=== PATIENT | female | born 1960 | race Caucasian/White ===

== ENCOUNTER → 2017-01-14 | Outpatient (CLI) | payer OTHER ==
[~2017-01-14] MED LIST: B-COTAB18 PO; BACL10TA PO; CYAN10005 PO; DICY10CA55 PO; FEXO5TAB2 PO; OMEP20CA59 PO; ONDA4TAB7 SL; PROM25TA16 PO; SERT50TA PO; TRAM-453 PO; VITA1TAB4 PO
--- NOTE | 2017-01-14 07:43 | DIAGNOSTIC IMAGING REPORT ---
Right upper quadrant ultrasound BILIARY ABDOMEN LIMITED CLINICAL HISTORY: K52.9 Chronic diarrhea of unknown [id number] Abdominal pain, p pain. Nausea. TECHNIQUE: Ultrasound COMPARISON STUDY: 06/23/2012 FINDINGS: Fatty infiltration of liver. Normal caliber bile ducts. Gallbladder is normal. Pancreas and right kidney are unremarkable. IMPRESSION: Fatty infiltration of liver. Otherwise negative study Electronically signed by: John Rodriguez M.D. 01/14/2017 7:41 AM Dictated Date/Time: 01/14/2017 7:38 AM
== END | disposition home or self-care (01) ==
LOC: C.ULTRBC 06:56
PROVIDERS: ATTEND Registered Nurse
DX: K52.9 Noninfective gastroenteritis and colitis, unspecified (principal); R10.33 Periumbilical pain

== ENCOUNTER → 2017-03-05 | Day surgery (SDC) | payer OTHER ==
[2017-02-18 15:08] VITALS: Ht 170.2 cm; Wt 97.7 kg
[~2017-03-05] VITALS: Ht 170.2 cm; Wt 97.7 kg
[~2017-03-05] MED LIST changes: +ATROPINE SULFATE 0.1 MG/ML 5ML SYR IV PRN; -BACL10TA PO; -CYAN10005 PO; -DICY10CA55 PO; +EpHEDrine SULFATE INJ 50 MG/ML AMP IV PRN; -FEXO5TAB2 PO; +LIDOCAINE HCL 2% 2 ML VIAL (20MG/ML) ONE; +MIDAZOLAM HCL 1 MG/ML 2ML VIAL ONE; -OMEP20CA59 PO; -ONDA4TAB7 SL; +ONDANSETRON INJ 2 MG/ML 2 ML VIAL ONE; -PROM25TA16 PO; +PROPOFOL IV EMULSION 10 MG/ML 20 ML VIAL IV ONE; +SODIUM CHLORIDE 0.9% 500ML 500 ML IV ONE; -TRAM-453 PO
--- NOTE | 2017-03-05 11:32 | Endo History and Physical ---
History & Physical Date of Service: Mar 05, 2017. Chief Complaint: Abdominal cramping, bloating, Nausea, Diarrhea Referring Physician: Eli Ventura History of Present Illness 56 yo CF who presents for colonoscopy secondary to abdominal cramping, bloating , nausea and diarrhea. Past Surgical History Hx Cardiac Surgery: No Hx Internal Defibrillator: No Hx Pacemaker: No Hx Abdominal Surgery: Yes (PARTIAL HYSTER) Hx of Implantable Prosthesis: No Hx Post-Op Nausea and Vomiting: No Hx Cancer Surgery: No Hx Thoracic Surgery: No Hx Orthopedic: Yes (LT/RT SHOULDER SURGERY) Hx Urinary Tract Surgery: No Family History None Social History Smoking Status: Never Smoker Hx Substance Use: No Hx Alcohol Use: No Allergies Coded Allergies: Dicyclomine (Verified Allergy, Unknown, VISUAL DISTURBANCES, 02/18/17) Latex1 -Allergic Contact Dermititis (Verified Adverse Reaction, Unknown, SKIN IRRITATION, 02/18/17) Current Medications Reported Home Medications Medications Dose Route/Sig Max Daily Dose Days Date Category Vitamin E 400 Unit Tab 1 Tab PO QAM 02/18/17 Reported Vitamin B Complex (B-Complex Vitamins) 1 Tab Tab 1 Tab PO QAM 02/18/17 Reported Zoloft (Sertraline Hcl) 50 Mg Tab 50 Mg PO HS 04/18/13 Reported Vital Signs Weight (Kilograms): 97.73 Height (Feet): 5 Height (Inches): 7 Date Time Temp Pulse Resp B/P Pulse Ox O2 Delivery O2 Flow Rate FiO2 03/05/17 11:17 37.1 85 16 132/81 95 Room Air Physical Exam General Appearance: WD/WN, no apparent distress Respiratory/Chest: Auscultation: breath sounds normal Cardiovascular: Heart Auscultation: RRR Abdomen: Bowel Sounds: normal Inspection & Palpation: soft, non-distended, no tenderness, guarding & rebound Assessment and Plan Assessment: 56 yo CF who presents for colonoscopy secondary to abdominal cramping, bloating , nausea and diarrhea. Plan: Proceed with colonoscopy.
--- NOTE | 2017-03-05 12:25 | Discharge Instructions ---
Endoscopy Patient Instructions Date / Procedure(s) Performed Mar 05, 2017. Colonoscopy Allergy Information Coded Allergies: Dicyclomine (Verified Allergy, Unknown, VISUAL DISTURBANCES, 02/18/17) Latex1 -Allergic Contact Dermititis (Verified Adverse Reaction, Unknown, SKIN IRRITATION, 02/18/17) Discharge Date / Findings Mar 05, 2017. Internal hemorrhoids Random colon biopsies Stool aspirate collected Medication Instructions OK to resume all medications today as prescribed Reported Home Medications Medications Dose Route/Sig Max Daily Dose Days Date Category Vitamin E 400 Unit Tab 1 Tab PO QAM 02/18/17 Reported Vitamin B Complex (B-Complex Vitamins) 1 Tab Tab 1 Tab PO QAM 02/18/17 Reported Zoloft (Sertraline Hcl) 50 Mg Tab 50 Mg PO HS 04/18/13 Reported Provider Instructions Activity Restrictions - No exercising or heavy lifting for 24 hours. - Do not drink alcohol the day of the procedure. - Do not drive a car or operate machinery until the day after the procedure. - Do not make any important decisions or sign important papers in 24 hours after the procedure. Following Day: - Return to full activity which may include returning to work/school. Diet Start your diet with liquids and light foods (jello, soup, juice, toast). Then eat your usual diet if not nauseated. Treatment For Common After Affects For mild abdominal pain, bloating, or excessive gas: - Rest - Eat lightly - Lie on right side Follow-Up Information Follow-up with Eli Ventura as scheduled Anesthesia Information What You Should Know You have had a procedure that required some medicine to reduce anxiety and discomfort. This treatment is called moderate sedation. After receiving the treatment, you may be sleepy, but you will be able to breathe on your own. The effects of the treatment may last for several hours. Follow these instructions along with Activity/Diet recommendations noted above: * Do NOT do anything where dizziness or clumsiness would be dangerous. * Rest quietly at home today, then you can be up and about tomorrow. * Have a responsible person stay with you the rest of today. * You may have had an I.V. today. If so, you may take the dressing off later today. Recommendations Call your doctor if: * Trouble breathing * Continuous vomiting for more than 24 hours * Temperature above 101 degrees * Severe abdominal pain or bloating * Pain not relieved by pain medicine ordered * There is increased drainage or redness from any incision * A large amount of rectal bleeding greater than 2-3 tablespoons. (If you had a polyp/s removed or have hemorrhoids, a small amount of blood - from the rectum is to be expected.) * You have any unanswered questions or concerns. IN THE EVENT OF A SERIOUS EMERGENCY, GO TO THE NEAREST EMERGENCY ROOM Your discharge instructions were prepared by provider Ajith Bonner. Patient Instructions Signature Page Anne-Marie Parkinson Patient (or Guardian) Signature/Date: I have read and understand the instructions given to me by my caregivers. Caregiver/RN/Doctor Signature/Date: The above-named patient and/or guardian has received patient instructions on this date. + Original Patient Signature Page (only) stays with chart. Please make copy for patient.
--- NOTE | 2017-03-05 12:25 | GI REPORT ---
Procedure Date: 03/05/2017 11:37 AM Procedure: Colonoscopy Indications: Chronic diarrhea Medicines: Monitored Anesthesia Care Complications: No immediate complications. Estimated Blood Loss: Estimated blood loss: none. Procedure: Pre-Anesthesia Assessment: - Prior to the procedure, a History and Physical was performed, and patient medications and allergies were reviewed. The patient's tolerance of previous anesthesia was also reviewed. The risks and benefits of the procedure and the sedation options and risks were discussed with the patient. All questions were answered, and informed consent was obtained. Prior Anticoagulants: The patient has taken no previous anticoagulant or antiplatelet agents. ASA Grade Assessment: III - A patient with severe systemic disease. After reviewing the risks and benefits, the patient was deemed in satisfactory condition to undergo the procedure. After I obtained informed consent, the scope was passed under direct vision. Throughout the procedure, the patient's blood pressure, pulse, and oxygen saturations were monitored continuously. The scope was introduced through the anus and advanced to the terminal ileum. The patient tolerated the procedure well. The quality of the bowel preparation was good. The terminal ileum, ileocecal valve, appendiceal orifice, and rectum were photographed. The colonoscopy was unusually difficult due to restricted mobility of the colon. Successful completion of the procedure was aided by using manual pressure and withdrawing the scope and replacing with the pediatric colonoscope. Findings: Non-bleeding internal hemorrhoids were found during retroflexion. The hemorrhoids were small. Several random biopsies were obtained with cold forceps for histology in the entire colon. Fluid aspiration for cytology was performed in the entire colon. Impression: - Non-bleeding internal hemorrhoids. - Several random biopsies were obtained in the entire colon. - Fluid aspiration was performed. Recommendation: - Resume previous diet. - Continue present medications. - Await pathology results. - Repeat colonoscopy for surveillance based on pathology results. - Return to primary care physician as previously scheduled. Ajith Bonner DO 03/05/2017 12:23:25 PM This report has been signed electronically. Note Initiated On: 03/05/2017 11:37 AM I attest to the content of the Intraoperative Record and orders documented therein, exceptions below
--- NOTE | 2017-03-05 12:32 | Anesthesiology Progress Note ---
Anesthesia Post Op Note Date & Time Mar 05, 2017 at 12:31 Vital Signs Vital Signs Past 12 Hours Date Time Temp Pulse Resp B/P Pulse Ox O2 Delivery O2 Flow Rate FiO2 03/05/17 12:20 89 16 109/79 99 Nasal Cannula 2 03/05/17 11:17 37.1 85 16 132/81 95 Room Air Notes Mental Status: alert / awake / arousable, participated in evaluation Pt Amnestic to Procedure: Yes Nausea / Vomiting: adequately controlled Pain: adequately controlled Airway Patency, RR, SpO2: stable & adequate BP & HR: stable & adequate Hydration State: stable & adequate Anesthetic Complications: no major complications apparent
[2017-03-05 12:58] VITALS: BP 102/80; PULSE 72; O2SAT 96
== END | disposition home or self-care (01) ==
LOC: C.GI 11:00
PROVIDERS: ATTEND Internal Medicine
DX: K52.9 Noninfective gastroenteritis and colitis, unspecified (principal); K64.8 Other hemorrhoids; Z90.711 Acquired absence of uterus with remaining cervical stump; K90.0 Celiac disease; Z98.890 Other specified postprocedural states; Z91.040 Latex allergy status; Z68.34 Body mass index [BMI] 34.0-34.9, adult; E66.9 Obesity, unspecified

== ENCOUNTER → 2017-09-21 | Outpatient (CLI) | payer OTHER ==
[~2017-09-21] MED LIST changes: -ATROPINE SULFATE 0.1 MG/ML 5ML SYR IV PRN; -EpHEDrine SULFATE INJ 50 MG/ML AMP IV PRN; -LIDOCAINE HCL 2% 2 ML VIAL (20MG/ML) ONE; -MIDAZOLAM HCL 1 MG/ML 2ML VIAL ONE; -ONDANSETRON INJ 2 MG/ML 2 ML VIAL ONE; -PROPOFOL IV EMULSION 10 MG/ML 20 ML VIAL IV ONE; -SODIUM CHLORIDE 0.9% 500ML 500 ML IV ONE
== END | disposition home or self-care (01) ==
LOC: C.PAPS 14:43
PROVIDERS: ATTEND Obstetrics & Gynecology
DX: Z12.4 Encounter for screening for malignant neoplasm of cervix (principal)

== ENCOUNTER → 2017-11-30 | Outpatient (CLI) | payer OTHER ==
[~2017-11-30] MED LIST changes: -B-COTAB18 PO; -VITA1TAB4 PO
--- NOTE | 2017-12-01 15:08 | MAMMOGRAPHY REPORT ---
BILATERAL DIGITAL SCREENING MAMMOGRAM TOMOSYNTHESIS WITH CAD: 11/30/2017 CLINICAL HISTORY: Routine screening. Patient has no complaints. TECHNIQUE: Breast tomosynthesis in addition to standard 2D mammography was performed. Current study was also evaluated with a Computer Aided Detection (CAD) system. COMPARISON: No prior exams were available for comparison. BREAST COMPOSITION: There are scattered areas of fibroglandular density in both breasts. FINDINGS: No suspicious masses, asymmetries, architectural distortion or suspicious microcalcificati ons are identified. IMPRESSION: ACR BI-RADS CATEGORY 1: NEGATIVE There is no mammographic evidence of malignancy. Prior outside mammograms are currently being reques silvia and if obtained they will be reviewed, compared to the current exam to assess for any more subtle changes, and an addendum will be made to this report. Otherwise, a 1 year screening mammogram is re commended. The patient will receive written notification of the results. Approximately 10% of breast cancers are not detected with mammography. A negative mammographic report should not delay biopsy if a clinically suggestive mass is present. Nisa Harding M.D. ay/:11/30/2017 16:48:07 [facility] Consultant: Deanna MCKEON)([place]), [facility] letter sent: Normal 1/2 BI-RADS Code: ACR BI-RADS Category 1: Negative
== END | disposition home or self-care (01) ==
LOC: C.MAMM 06:58
PROVIDERS: ATTEND Obstetrics & Gynecology
DX: Z12.31 Encounter for screening mammogram for malignant neoplasm of breast (principal)

== ENCOUNTER → 2017-12-16 | Outpatient (CLI) | payer OTHER ==
--- NOTE | 2017-12-16 16:22 | DIAGNOSTIC IMAGING REPORT ---
CT OF THE HEAD WITHOUT CONTRAST CLINICAL HISTORY: Chronic migraines. COMPARISON STUDY: No previous studies for comparison. CT DOSE: 537.48 mGy.cm TECHNIQUE: Helical axial images of the head were obtained without IV contrast. Automated exposure control was utilized for the study. A dose lowering technique was utilized adhering to the principles of ALARA. FINDINGS: No acute intracranial hemorrhage, midline shift or mass effect is present. There is fullness at the level of the foramen magnum. Ventricular system is normal. There are no extra-axial collections. Pham-white differentiation is maintained. There are no findings to suggest acute dural sinus thrombosis or acute territorial infarct. There are no significant calvarial abnormalities. Visualized portions of the sinuses and mastoid air cells are clear. IMPRESSION: 1. No acute intracranial findings. 2. Fullness at the level of the foramen magnum which may represent cerebellar tonsillar ectopia which is suboptimally assessed by CT. An MRI of the cervical spine could be obtained if clinical suspicion for a Chiari malformation. Electronically signed by: Chase Valdivia M.D. 12/16/2017 4:20 PM Dictated Date/Time: 12/16/2017 4:18 PM
== END | disposition home or self-care (01) ==
LOC: C.CTS 15:47
PROVIDERS: ATTEND Family Medicine
DX: G43.709 Chronic migraine without aura, not intractable, without status migrainosus (principal)

== ENCOUNTER → 2018-01-21 | Outpatient (CLI) | payer OTHER ==
[~2018-01-21] MED LIST changes: +GADAVIST IV PRN
--- NOTE | 2018-01-21 16:35 | DIAGNOSTIC IMAGING REPORT ---
BRAIN COMBO HISTORY: 57 years-old Female CEREBELLAR TONSILLAR ECTOPIA, HEADACHE chronic headaches with dizziness. Questioned Chiari malformation on comparison CT head COMPARISON: Head CT 12/16/2017 TECHNIQUE: Multiplanar multisequence MRI of the brain was obtained both with and without the use of 9.5 mL Gadavist FINDINGS: The large wasna-db-cqhy getterer localizer images demonstrate no gross abnormality. There is no restricted diffusion to suggest acute or subacute infarction. The cerebellar tonsils extend 6 mm below the level the foramen magnum compatible with Chiari I malformation. No syrinx of the imaged cervical spinal cord identified. No posterior fossa mass is seen. The corpus callosum, optic chiasm, pituitary and pineal glands are unremarkable in the sagittal T1 images. Mild degenerative changes of the imaged cervical spine. There is no acute intracranial hemorrhage, midline shift, abnormal extra-axial collections or hydrocephalus. There are a few punctate foci of increased T2/FLAIR signal within the subcortical white matter, notably within the left frontal lobe, image 9 series 7 which are likely of no clinical significance. There is no abnormal intra-axial or extra-axial enhancement identified. The major flow voids at the level of the skull base appear to be patent. Orbits are symmetric. Mastoid air cells and paranasal sinuses are generally clear. Scalp, calvarium and soft tissues are within normal limits. IMPRESSION: 1. No acute intracranial abnormality identified. No evidence of acute infarction or abnormal enhancement. 2. Chiari I malformation. No syrinx of the imaged cervical spinal cord identified. The above report was generated using voice recognition software. It may contain grammatical, syntax or spelling errors. Electronically signed by: Clint Jurado M.D. 01/21/2018 4:33 PM Dictated Date/Time: 01/21/2018 4:27 PM
== END | disposition home or self-care (01) ==
LOC: C.MRI 15:49
PROVIDERS: ATTEND Psychiatry & Neurology Neurology
DX: Q04.8 Other specified congenital malformations of brain (principal); R51 Headache; G93.5 Compression of brain

== ENCOUNTER → 2018-03-28 | Outpatient (CLI) | payer OTHER ==
[~2018-03-28] MED LIST changes: -GADAVIST IV PRN
== END | disposition home or self-care (01) ==
LOC: C.LAB 16:02
PROVIDERS: ATTEND Obstetrics & Gynecology
DX: R10.2 Pelvic and perineal pain (principal)

== ENCOUNTER → 2018-03-28 | Outpatient (CLI) | payer OTHER ==
[~2018-03-28] MED LIST changes: +GADAVIST IV PRN
--- NOTE | 2018-03-28 18:22 | DIAGNOSTIC IMAGING REPORT ---
CERVICAL SPINE COMBO CLINICAL HISTORY: 57 years-old Female presenting with CHIARI MALFORMATION, NUMBNESS, TINGLING. TECHNIQUE: Multisequence, multiplanar MR imaging of the cervical spine was performed before and after the administration of intravenous contrast. IV contrast: 9 mL of Gadavist. COMPARISON: None. FINDINGS: Localizer images: Unremarkable. Normal cervical lordosis. Vertebral bodies maintain normal height, alignment, and bone marrow signal intensity. Mild diffuse disc desiccation. Mild height loss focally at C5-6. Additional degenerative changes further detailed below: C2-3: No significant neural foraminal or spinal canal narrowing. C3-4: Uncovertebral hypertrophy on the right results in mild right neural foraminal narrowing. No spinal canal narrowing. C4-5: Small disc osteophyte complex/uncovertebral hypertrophy does not significantly efface the thecal sac. However, mild right neural foraminal narrowing evident. C5-6: Disc osteophyte complex with significant posterior bony spurring results in effacement of the ventral thecal sac and contouring of the spinal cord most prominently along the left paracentral anterior aspect. Uncovertebral hypertrophy also results in mild right and moderate left neural foraminal narrowing. C6-7: No significant neural foraminal or spinal canal narrowing. C7-T1: No significant neural foraminal or spinal canal narrowing. No dural collection. No abnormal enhancement on postcontrast imaging. The spinal cord demonstrates a small series (series 4 image 9). Cerebellar tonsils are low-lying, 7 mm below the foramen magnum. No paraspinal muscular edema. Remaining soft tissues within normal limits. IMPRESSION: 1. Findings consistent with Chiari 1 malformation with a small syrinx. 2. Multilevel degenerative changes most significant at C5-6, where there is contouring of the spinal cord primarily along the left or central anterior aspect. Neural foraminal narrowing from C3-4 through C5-6 most significant on the left at C5-6. Electronically signed by: Loyd Colby M.D. 03/28/2018 6:21 PM Dictated Date/Time: 03/28/2018 6:13 PM
== END | disposition home or self-care (01) ==
LOC: C.MRI 16:00
PROVIDERS: ATTEND Psychiatry & Neurology Neurology
DX: G95.0 Syringomyelia and syringobulbia (principal); R20.0 Anesthesia of skin; R20.2 Paresthesia of skin

== ENCOUNTER 2019-11-09 20:29 | Inpatient (IN) ==
[2019-11-09] MEDS ORDERED: ONDANSETRON INJ 2 MG/ML 2 ML VIAL IV STA (21:09)
[2019-11-09] MEDS ORDERED: POTASSIUM CHLORIDE 20 MEQ/15 ML UDC PO STA (21:09)
[2019-11-09] MEDS ORDERED: SODIUM CHLORIDE 0.9% 1000ML 2,000 ML IV SCH (21:15)
[2019-11-09] MEDS: POTASSIUM CHLORIDE / WTR 10 MEQ/100 ML PLCT IV SCH ×2 (21:27→22:33)
[2019-11-09 21:28] LABS: Basophils # (auto) 0.01 K/uL (0-0.2); Basophils % (auto) 0.1 %; Eosinophils # (auto) 0.06 K/uL (0-0.5); Eosinophils % (auto) 0.8 %; Hematocrit (blood only) 40.4 % (37-47); Hemoglobin 14.3 g/dL (12.0-16.0); Lymphocytes # (auto) 2.64 K/uL (1.2-3.4); Lymphocytes % (auto) 37.2 %; Mean Corpuscular Hemoglobin 30.2 pg (25-34); Mean Corpuscular Hgb Conc 35.4 g/dL (32-36); Mean Corpuscular Volume 85.4 fL (80-100); Monocytes # (auto) 0.75 K/uL (0.11-0.59); Monocytes % (auto) 10.6 %; Neutrophils # (auto) 3.64 K/uL (1.4-6.5); Neutrophils % (auto) 51.3 %; Platelet Count 274 K/uL (130-400); RDW Coefficient of Variation 14.3 % (11.5-14.5); RDW Standard Deviation 44.2 fL (36.4-46.3); Red Blood Count 4.73 M/uL (4.2-5.4)
[2019-11-09 21:47] LABS: Albumin Level 3.5 gm/dl (3.4-5.0); BUN Creatinine Ratio 14.3 (10-20); Calcium 8.4 mg/dl (8.5-10.1); Creatinine Clr Calc Pharmacy 74.5 ml/min; Est GFR (African American) 76.5; Potassium 2.2 mmol/L (3.5-5.1)
[2019-11-09 22:03] LABS: Bilirubin,Total 0.3 mg/dl (0.2-1); Globulin 3.6 gm/dl (2.5-4.0); Total Protein 7.1 gm/dl (6.4-8.2)
--- NOTE | 2019-11-09 23:42 | History & Physical Report ---
Date of Service November 09, 2019 Assessment & Plan (1) Acute hypokalemia: Outpatient laboratories performed prior to arrival, showed a potassium level of 2.5. In hospital laboratories upon admission showed a potassium 2.2, with normal magnesium level of 2.2. Patient will have potassium replaced both orally and IV, and will have serial laboratory testing for follow-up. Present on Admission?: Yes (2) Celiac disease: Patient will be placed on standard gluten-free diet. She reports that the symptoms began after eating cheddar biscuits at [facility]. Present on Admission?: Yes (3) Lymphocytic colitis: Lymphocytic colitis, as diagnosed on recent EGD by Dr. Bonner. She has taken 1 dose of budesonide orally at this time. While in hospital will place on IV Solu-Medrol, and she will resume budesonide upon discharge. Likely cause of her increased volume of diarrhea and secondary hypokalemia. Consult GI Dr. Bonner Present on Admission?: Yes (4) Migraine: Continue topiramate and sertraline. Present on Admission?: Yes (5) Anxiety: Continue topiramate and sertraline Present on Admission?: Yes History of Present Illness After a failed course of treatment of Xifaxan Chief Complaint: The patient presents to the emergency department after being referred from the outpatient setting due to abnormal laboratories drawn earlier in the day, in particular low potassium. Primary Care Provider: Eli Ventura MD The patient is a 59-year-old female with a past medical history including celiac disease, lymphocytic colitis, Chiari malformation, migraine, chronic diarrhea and depression, who reports that around she had eaten 2 biscuits at a local eatery, and shortly thereafter developed persistent diarrhea, unchanged since that time. Laboratories were drawn in the outpatient setting today, and a very low potassium was found, and she was referred to the emergency department for treatment. Patient does have a history of intermittent diarrhea, associated with her celiac disease, however, since the symptoms were significantly worse, she did undergo an EGD recently by Dr. Bonner, after a failed course of treatment of Xifaxan, and was found to have lymphocytic colitis, for which she was recently prescribed and just started budesonide orally. Allergies Allergy/AdvReac Type Severity Reaction Status Date / Time dicyclomine Allergy Mild VISUAL Verified 11/09/19 22:10 DISTURBANCES latex AdvReac Mild SKIN Verified 11/09/19 22:10 IRRITATION Home Medications Home Medications Medication Instructions Recorded Confirmed Type sertraline 50 mg tablet 50 mg PO HS 09/04/19 11/09/19 History topiramate 100 mg tablet 100 mg PO BID 09/04/19 11/09/19 History montelukast [Singulair] 10 mg PO QAM 10/30/19 11/09/19 History rizatriptan 10 mg PO UD PRN 10/30/19 11/09/19 History vitamin B complex 1 tab PO QAM 10/30/19 11/09/19 History budesonide 9 mg tablet,delayed and 9 mg PO DAILY #30 ea 11/09/19 11/09/19 Rx extended release Past Med/Surg History Medical History Anxiety Celiac disease blood work positive, pt denies any EGD---follows GF diet Chronic diarrhea Giardiasis IBS (irritable bowel syndrome) Migraine Spinal stenosis Surgical History H/O colonoscopy History of arthroscopy of left shoulder labial tear History of arthroscopy of right shoulder labial tear History of photorefractive keratectomy (PRK) right eye History of vaginal hysterectomy Family History Mother Family history of diabetes mellitus Other No family history of adverse response to anesthesia Social History Preferred Language: Armenian Communication Ability: Effective Visual Impairment: No Limitations Hearing Ability: Normal Security Installation Sales Technician Required: No Beliefs That Will Affect Care: None marital status: Current Living Situation: Alone current occupational status: employed current occupation: Registered Nurse Other Information That Helps Us Care for You: No Feels Safe at Home: Yes Safety Concerns: Feels Safe At This Time Smoking Status: Never smoker Do You Dip or Chew Tobacco: No ; Second Hand Exposure: No ; Hx Alcohol Use: No Hx Substance Use: No Childhood Exposure to Second-Hand Smoke: Yes caffeine: No during the past year weight has: remained stable Dental Care, Regularly: Yes Physical Activity Frequency: Daily Seatbelt Use: always Sunscreen Use: Yes Review of Systems Review of Systems: The patient denies chest pain, palpitations, shortness of breath, dyspnea on exertion, cough, lower extremity swelling, sore throat, fevers, chills, sweats, blood in urine or stool, dysuria, urinary frequency or urgency, lightheadedness, dizziness, headache, memory loss, loss of consciousness, rash, abnormal bruising or bleeding, imbalance, focal or generalized weakness, numbness or tingling in arms or legs, generalized arthralgias or myalgias, back or neck pain, or night sweats. The review of systems is otherwise negative other than for that already noted above, and at least 10 systems have been reviewed. Physical Exam Physical Exam: The patient is awake, alert and oriented 3, well developed and well nourished, normocephalic and atraumatic, lying in bed and in no acute distress. HEENT--PERRL, EOMI, mucous membranes and oropharynx dry. Neck--supple. No JVD. No bruits. Thyroid normal, trachea midline, no adenopathy. Heart--normal S1 and S2. No murmurs, rubs or gallops. Lungs--clear bilaterally, no respiratory distress, no accessory muscle use. Abdomen--normal bowel sounds and soft. Nontender. Nondistended. Extremities--no cyanosis or clubbing. No edema. Dermatologic--normal skin turgor, normal color, no abnormal lymph nodes, no rash. Neurologic--cranial nerves II through XII grossly intact. Rheumatologic--normal range of motion. Psychiatric--normal affect. Results & Data Vital Signs (Past 12 Hours) Vital Signs Temp Pulse Pulse Resp BP BP Pulse Ox 11/09/19 22:30 75 16 123/80 99 11/09/19 20:31 97.7 F 82 18 138/85 96 Laboratory Results Laboratory Results WBC 7.10 K/uL (4.8-10.8) 11/09/19 21: RBC 4.73 M/uL (4.2-5.4) 11/09/19 21: Hgb 14.3 g/dL (12.0-16.0) 11/09/19 21:19 Hct 40.4 % (37-47) 11/09/19 21: MCV 85.4 fL (80-100) 11/09/19 21: MCH 30.2 pg (25-34) 11/09/19 21:19 MCHC 35.4 g/dL (32-36) 11/09/19 21: RDW Std Deviation 44.2 fL (36.4-46.3) 11/09/19 21: RDW Coeff of Dave 14.3 % (11.5-14.5) 11/09/19 21:19 Plt Count 274 K/uL (130-400) 11/09/19 21: MPV 10.0 fL (7.4-10.4) 11/09/19 21:19 Immature Gran % (Auto) 0.0 % 11/09/19 21: Neut % (Auto) 51.3 % 11/09/19 21: Lymph % (Auto) 37.2 % 11/09/19 21: Scott % (Auto) 10.6 % 11/09/19 21: Eos % (Auto) 0.8 % 11/09/19 21: Baso % (Auto) 0.1 % 11/09/19 21: Immature Gran # (Auto) 0.00 K/uL (0.00-0.02) 11/09/19 21: Neut # (Auto) 3.64 K/uL (1.4-6.5) 11/09/19 21: Lymph # (Auto) 2.64 K/uL (1.2-3.4) 11/09/19 21:19 Scott # (Auto) 0.75 K/uL (0.11-0.59) H 11/09/19 21: Eos # (Auto) 0.06 K/uL (0-0.5) 11/09/19 21: Baso # (Auto) 0.01 K/uL (0-0.2) 11/09/19 21:19 Sodium 141 mmol/L (136-145) 11/09/19 21:19 Potassium 2.2 mmol/L (3.5-5.1) L* 11/09/19 21:19 Chloride 110 mmol/L (98-107) H 11/09/19 21:19 Carbon Dioxide 27 mmol/L (21-32) 11/09/19 21:19 Anion Gap 4.0 (3-11) 11/09/19 21:19 BUN 14 mg/dl (7-18) 11/09/19 21:19 Creatinine 0.95 mg/dl (0.6-1.2) D 11/09/19 21:19 Est Cr Clr Drug Dosing 74.5 ml/min 11/09/19 21:19 Est GFR ( Amer) 76.5 11/09/19 21:19 Est GFR (Non-Af Amer) 66.0 11/09/19 21:19 BUN/Creatinine Ratio 14.3 (10-20) 11/09/19 21:19 Glucose 133 mg/dl (70-99) H 11/09/19 21:19 Calcium 8.4 mg/dl (8.5-10.1) L 11/09/19 21:19 Magnesium 2.2 mg/dl (1.8-2.4) 11/09/19 21:19 Total Bilirubin 0.3 mg/dl (0.2-1) 11/09/19 21:19 AST 19 U/L (15-37) 11/09/19 21:19 ALT 28 U/L (12-78) 11/09/19 21:19 Alkaline Phosphatase 78 U/L (45-117) 11/09/19 21:19 Total Protein 7.1 gm/dl (6.4-8.2) 11/09/19 21:19 Albumin 3.5 gm/dl (3.4-5.0) 11/09/19 21:19 Globulin 3.6 gm/dl (2.5-4.0) 11/09/19 21:19 Albumin/Globulin Ratio 1.0 (0.9-2) 11/09/19 21:19 Lipase 270 U/L (73-393) 11/09/19 21:19 Code Status & VTE Plan Code Status Full code VTE Prophylaxis Plan VTE Prophylaxis will be ordered: Yes PG Care Time/CCT Total # of Minutes Spent Total Time Spent with Patient: Total time spent is greater than 50% in coordination of care (as documented) at patient's floor/unit and/or counseling patient:
[2019-11-09 23:50] LABS: Magnesium 2.2 mg/dl (1.8-2.4)
--- NOTE | 2019-11-10 00:14 | Emergency Department Note ---
Entered by Dipesh Quiroz acting as a scribe for Barbra Willis MD History of Present Illness General Chief complaint: Abnormal Labs/Diagnostic Testing Stated complaint: REF FOR LAB WORK Source: patient History of Present Illness Onset (ago): day(s) 6 Severity: moderate Pain Consistency: + constant Quality: + other (weakness and tired) Associated symptoms: + denies other symptoms (blood in her diarrhea) and + other (diarrhea, potassium of 2.5, palpitations) The patient is a 59 y/o female who presents to the ED w/ CC of constant, moderat e, weakness and feeling tired beginning six days ago. The patient states she has a history of celiac disease and has been having diarrhea for over a month. She reports she believes it started from having two cheddar biscuits at [facility]. The patient notes she was evaluated by Dr. Bonner and placed on Xifaxan without improvement. She states she then had a colonoscopy eight days ago, and she was diagnosed with lymphatic colitis. The patient reports she had a follow-up appointment today to discuss treatment options. She notes she had lab work completed because she has been feeling tired and weak and also because she had palpitations today. The patient states she was told to come to the ED because her potassium was 2.5. She reports she is not having blood in her diarrhea. Home Medications Home Medications Medication Instructions Recorded Confirmed Type sertraline 50 mg tablet 50 mg PO HS 09/04/19 11/09/19 History topiramate 100 mg tablet 100 mg PO BID 09/04/19 11/09/19 History montelukast [Singulair] 10 mg PO QAM 10/30/19 11/09/19 History rizatriptan 10 mg PO UD PRN 10/30/19 11/09/19 History vitamin B complex 1 tab PO QAM 10/30/19 11/09/19 History budesonide 9 mg tablet,delayed and 9 mg PO DAILY #30 ea 11/09/19 11/09/19 Rx extended release potassium chloride 30 meq PO BID #60 tab 11/11/19 Rx potassium, sodium phosphates 1 pkt PO BID #100 ea 11/11/19 Rx [Phosphorous Supplement] Allergies Allergy/AdvReac Type Severity Reaction Status Date / Time dicyclomine Allergy Mild VISUAL Verified 11/09/19 22:10 DISTURBANCES latex AdvReac Mild SKIN Verified 11/09/19 22:10 IRRITATION Past Med/Surg History Medical History Anxiety Celiac disease blood work positive, pt denies any EGD---follows GF diet Chronic diarrhea Giardiasis IBS (irritable bowel syndrome) Migraine Spinal stenosis Surgical History H/O colonoscopy History of arthroscopy of left shoulder labial tear History of arthroscopy of right shoulder labial tear History of photorefractive keratectomy (PRK) right eye History of vaginal hysterectomy Family History Mother Family history of diabetes mellitus Other No family history of adverse response to anesthesia Social History Preferred Language: Danish Communication Ability: Effective Visual Impairment: No Limitations Hearing Ability: Normal Manager Business Continuity Required: No Beliefs That Will Affect Care: None marital status: Current Living Situation: Alone current occupational status: employed current occupation: Registered Nurse Feels Safe at Home: Yes Smoking Status: Never smoker Second Hand Exposure: No ; Hx Alcohol Use: No Hx Substance Use: No Childhood Exposure to Second-Hand Smoke: Yes caffeine: No during the past year weight has: remained stable Dental Care, Regularly: Yes Physical Activity Frequency: Daily Seatbelt Use: always Sunscreen Use: Yes Review of Systems See HPI for pertinent positives & negatives. and A total of 10 systems reviewed and were otherwise negative Physical Exam Vital Signs Vital Signs - 24 hr 11/09/19 20:31 11/09/19 22:30 Temperature 36.5 C Temperature Source Oral Pulse Rate 82 Pulse Rate [Apical] 75 Pulse Rhythm [Apical] Regular Pulse Strength [Apical] Normal Respiratory Rate 18 16 Respiratory Effort / Characteristics Non-Labored Spontaneous Non-Labored Spontaneous Respiratory Depth Normal Normal Respiratory Pattern Regular Regular Blood Pressure 138/85 Blood Pressure [Left Arm] 123/80 Blood Pressure Mean 102 Blood Pressure Mean [Left Arm] 94 Blood Pressure Position Sitting Blood Pressure Position [Left Arm] Lying Pulse Oximetry 96 99 Oxygen Delivery Method Room Air Room Air Sepsis Recent Fever Within 48 Hours No Sepsis Action Taken by Nursing No Action Required Vital signs reviewed. General: Dry-appearing 59 year old female, in no significant distress. HEENT: No scleral icterus, PERRLA, neck supple. Atraumatic. Dry mucous membranes. Cardiovascular: Regular rate and rhythm, no extra sounds. Pulmonary: Clear to auscultation bilaterally, normal work of breathing. Abdomen: Soft, nontender, nondistended, positive bowel sounds. Musculoskeletal: Atraumatic, no peripheral edema. Neurologic: Patient awake alert and oriented x 3. Skin: Warm, dry, no rash Course Course 2106: Past medical records reviewed. The patient was evaluated in room C01B. A complete history and physical examination was performed. 2213: Upon reevaluation, the patient is resting comfortably. I discussed laboratory and radiographic results with her. She verbalized agreement of the treatment plan. The patient will be evaluated for further management and care. 224: I reviewed the patient's case with Dr. Crawford, [facility] Hospitalist. He will evaluate the patient for further management. Administered Medications Discontinued Medications Budesonide (Entocort Ec) 9 mg PO QAM JOSÉ Stop: 12/10/19 14:59 Last Admin: 11/11/19 08:14 Dose: 9 mg Documented by: [id number] Admin: 11/10/19 15:23 Dose: 9 mg Documented by: [id number] Cholestyramine Resin (Questran) 2 gm PO ONE ONE Stop: 11/10/19 01:09 Last Admin: 11/10/19 02:16 Dose: 2 gm Documented by: [id number] Sodium Chloride (Nss 1000ml) 2,000 mls @ 999 mls/hr IV .Q2H1M JOSÉ Stop: 11/09/19 23:15 Last Infusion: 11/09/19 23:44 Dose: 0 mls/hr Documented by: [id number] Admin: 11/09/19 21:27 Dose: 999 mls/hr Documented by: [id number] Potassium Chloride (K Jono / Wtr) 10 meq in 100 mls @ 100 mls/hr IV Q1H JOSÉ Stop: 11/09/19 23:14 Last Infusion: 11/09/19 23:44 Dose: 0 mls/hr Documented by: [id number] Admin: 11/09/19 22:33 Dose: 100 mls/hr Documented by: [id number] Infusion: 11/09/19 22:27 Dose: 0 mls/hr Documented by: [id number] Admin: 11/09/19 21:27 Dose: 100 mls/hr Documented by: [id number] Methylprednisolone 40 mg/ (Syringe) 0.64 mls @ 1.5 mls/min IV Q8H JOSÉ Stop: 12/10/19 01:59 Last Admin: 11/10/19 11:15 Dose: 1.5 mls/min Documented by: [id number] Admin: 11/10/19 02:19 Dose: 1.5 mls/min Documented by: [id number] Potassium Chloride/Sodium Chloride (Normal Saline W/20 Meq Kcl) 20 meq in 1,000 mls @ 150 mls/hr IV .Q6H40M JOSÉ Stop: 12/10/19 01:07 Last Infusion: 11/10/19 15:34 Dose: 0 mls/hr Documented by: [id number] Admin: 11/10/19 09:12 Dose: 150 mls/hr Documented by: [id number] Infusion: 11/10/19 09:00 Dose: 150 mls/hr Documented by: [id number] Admin: 11/10/19 02:19 Dose: 150 mls/hr Documented by: [id number] Calcium Gluconate 2,000 mg/ (Sodium Chloride) 70 mls @ 280 mls/hr IV ONE ONE Stop: 11/10/19 15:14 Last Infusion: 11/10/19 15:51 Dose: 0 mls/hr Documented by: [id number] Admin: 11/10/19 15:23 Dose: 280 mls/hr Documented by: [id number] Potassium Phosphate 21 mmol/ (Sodium Chloride) 507 mls @ 144 mls/hr IV ONE ONE Stop: 11/11/19 12:16 Last Infusion: 11/11/19 12:41 Dose: 0 mls/hr Documented by: [id number] Admin: 11/11/19 09:06 Dose: 144 mls/hr Documented by: [id number] Montelukast Sodium (Singulair) 10 mg PO QAM [facility] Stop: 12/10/19 08:59 Last Admin: 11/11/19 08:13 Dose: 10 mg Documented by: [id number] Admin: 11/10/19 09:13 Dose: 10 mg Documented by: [id number] Ondansetron HCl (Zofran) 4 mg IV NOW STA Stop: 11/09/19 21:10 Last Admin: 11/09/19 21:27 Dose: 4 mg Documented by: [id number] Potassium Chloride (Eula Ciel Elix) 40 meq PO NOW STA Stop: 11/09/19 21:10 Last Admin: 11/09/19 21:28 Dose: 40 meq Documented by: [id number] Potassium Chloride (Klor-Con M20) 20 meq PO Q2H JOSÉ Stop: 11/10/19 13:01 Last Admin: 11/10/19 13:13 Dose: 20 meq Documented by: [id number] Admin: 11/10/19 11:18 Dose: 20 meq Documented by: [id number] Admin: 11/10/19 09:13 Dose: 20 meq Documented by: [id number] Admin: 11/10/19 06:28 Dose: 20 meq Documented by: [id number] Admin: 11/10/19 04:50 Dose: 20 meq Documented by: [id number] Admin: 11/10/19 02:19 Dose: 20 meq Documented by: [id number] Potassium Chloride (Klor-Con Pwd) 20 meq PO BID JOSÉ Stop: 11/11/19 09:01 Last Admin: 11/10/19 19:09 Dose: Not Given Documented by: [id number] Potassium Chloride (Klor-Con M20) 20 meq PO BID JOSÉ Stop: 11/11/19 09:01 Last Admin: 11/11/19 08:13 Dose: 20 meq Documented by: [id number] Admin: 11/10/19 20:46 Dose: 20 meq Documented by: [id number] Admin: 11/10/19 16:54 Dose: 20 meq Documented by: [id number] Rizatriptan Benzoate (Maxalt) 10 mg PO UD PRN PRN Reason: migraine headache Stop: 12/10/19 01:07 Last Admin: 11/10/19 20:45 Dose: 10 mg Documented by: [id number] Sertraline HCl (Zoloft) 50 mg PO HS JOSÉ Stop: 12/10/19 20:59 Last Admin: 11/10/19 20:46 Dose: 50 mg Documented by: [id number] Topiramate (Topamax) 100 mg PO BID JOSÉ Stop: 12/10/19 01:07 Last Admin: 11/11/19 08:13 Dose: 100 mg Documented by: [id number] Admin: 11/10/19 20:46 Dose: 100 mg Documented by: [id number] Admin: 11/10/19 09:14 Dose: 100 mg Documented by: [id number] Admin: 11/10/19 02:18 Dose: 100 mg Documented by: [id number] Vitamin B Complex (Vitamin B Complex) 1 tab PO ANN JOSÉ Stop: 12/10/19 08:59 Last Admin: 11/11/19 08:14 Dose: 1 tab Documented by: [id number] Admin: 11/10/19 09:14 Dose: 1 tab Documented by: [id number] Medical Decision Making Differential Diagnosis Differential: Viral, Bacterial, Parasitic, Iatrogenic, C-Diff, Malabsorbtion, Irritable Bowel Disease, IBS, Ischemic Bowel, amongst other pathologies ent ertained. Medical Records Attestation: I reviewed the patient's medical records. Home Medications Current Medication List: was personally reviewed by me Laboratory Data Attestation: I reviewed the patient's lab results. Result diagrams: 11/10/19 07:09 11/11/19 05:49 Lab Results 11/09/19 11/09/19 Range/Units 21:19 21:19 WBC 7.10 (4.8-10.8) K/uL RBC 4.73 (4.2-5.4) M/uL Hgb 14.3 (12.0-16.0) g/dL Hct 40.4 (37-47) % MCV 85.4 (80-100) fL MCH 30.2 (25-34) pg MCHC 35.4 (32-36) g/dL RDW Std Deviation 44.2 (36.4-46.3) fL RDW Coeff of Dave 14.3 (11.5-14.5) % Plt Count 274 (130-400) K/uL MPV 10.0 (7.4-10.4) fL Immature Gran % (Auto) 0.0 % Neut % (Auto) 51.3 % Lymph % (Auto) 37.2 % [place] % (Auto) 10.6 % Eos % (Auto) 0.8 % Baso % (Auto) 0.1 % Immature Gran # (Auto) 0.00 (0.00-0.02) K/uL Neut # (Auto) 3.64 (1.4-6.5) K/uL Lymph # (Auto) 2.64 (1.2-3.4) K/uL [place] # (Auto) 0.75 H (0.11-0.59) K/uL Eos # (Auto) 0.06 (0-0.5) K/uL Baso # (Auto) 0.01 (0-0.2) K/uL Sodium 141 (136-145) mmol/L Potassium 2.2 L* (3.5-5.1) mmol/L Chloride 110 H (98-107) mmol/L Carbon Dioxide 27 (21-32) mmol/L Anion Gap 4.0 (3-11) BUN 14 (7-18) mg/dl Creatinine 0.95 D (0.6-1.2) mg/dl Est Cr Clr Drug Dosing 74.5 ml/min Est GFR ( Amer) 76.5 Est GFR (Non-Af Amer) 66.0 BUN/Creatinine Ratio 14.3 (10-20) Glucose 133 H (70-99) mg/dl Calcium 8.4 L (8.5-10.1) mg/dl Magnesium 2.2 (1.8-2.4) mg/dl Total Bilirubin 0.3 (0.2-1) mg/dl AST 19 (15-37) U/L ALT 28 (12-78) U/L Alkaline Phosphatase 78 (45-117) U/L Total Protein 7.1 (6.4-8.2) gm/dl Albumin 3.5 (3.4-5.0) gm/dl Globulin 3.6 (2.5-4.0) gm/dl Albumin/Globulin Ratio 1.0 (0.9-2) Lipase 270 (73-393) U/L ECG Data Attestation: I personally reviewed and interpreted this ECG as follows: Indication: + weakness Rate (beats per minute): 74 Rhythm: + normal sinus ECG ST segments: + Nonspecific ST abnormalities (diffusely) ECG Findings: + Other (Prolonged QTc of 463); no PACs and no PVCs Blood Pressure Blood Pressure Findings: Elevated blood pressure Blood Pressure Disposition: further management by hospitalist NYLA Lucio This patient was evaluated and appeared to be in no significant distress. IV access was obtained and laboratory work was drawn. Patient was started on IV hydration and placed on the hall monitor. Patient's potassium was noted to be 2.2. Patient was given 40 mEq of potassium orally in addition to 20 mEq of KCl IV. EKG reveals some changes consistent with hyperkalemia. Patient was discussed with the hospitalist service for potassium replacement and further hydration. Patient is aware of the plan and agrees. Impression & Plan Acute hypokalemia, Diarrhea, Acute dehydration Discharge Plan Visit Data *Final* Discharge Date/Time: 11/10/19 00:38 Chief Complaint: Abnormal Labs/Diagnostic Testing Stated Complaint: DR BARON FOR LAB WORK ED Provider: Barbra Willis Discharge Problem: Acute hypokalemia, Diarrhea, Acute dehydration Patient Disposition: Admitted As Inpatient Discharge Instructions Interventions: ED Discharge Assessment Last Done: 11/10/19 00:38 Discharge Problem: Diarrhea Qualifiers: Diarrhea type: unspecified type Qualified Code(s): R19.7 - Diarrhea, unspecified The scribe's documentation has been prepared under my direction and personally reviewed by me in its entirety. I confirm that the note above accurately reflects all work, treatment, procedures, and medical decision making performed by me.
[2019-11-10] MEDS ORDERED: ONDANSETRON INJ 2 MG/ML 2 ML VIAL IV PRN (01:08)
[2019-11-10] MEDS ORDERED: ACETAMINOPHEN 325 MG TAB PO PRN (01:08)
[2019-11-10] MEDS ORDERED: RIZATRIPTAN BENZOATE 10 MG TAB PO PRN (01:08)
[2019-11-10] MEDS ORDERED: CHOLESTYRAMINE LIGHT 4 GM PKT PO ONE (01:08)
[2019-11-10] MEDS: TOPIRAMATE 100 MG TAB PO SCH ×3 (02:18→20:46)
[2019-11-10] MEDS: NSS + 20MEQ KCL 20 MEQ/1,000 ML BAG IV SCH ×2 (02:19→09:12)
[2019-11-10] MEDS: methylPREDNISolone 40 MG in SYRINGE 0 ML IV SCH ×2 (02:19→11:15)
[2019-11-10] MEDS: POTASSIUM CHLORIDE 20 MEQ TABCR PO SCH ×8 (02:19→20:46)
[2019-11-10 07:22] LABS: Mean Corpuscular Hemoglobin 29.5 pg (25-34); Mean Corpuscular Hgb Conc 34.2 g/dL (32-36); Mean Corpuscular Volume 86.2 fL (80-100); Mean Platelet Volume 9.7 fL (7.4-10.4); Platelet Count 248 K/uL (130-400); RDW Coefficient of Variation 14.6 % (11.5-14.5); RDW Standard Deviation 45.6 fL (36.4-46.3); Red Blood Count 4.41 M/uL (4.2-5.4); White Blood Count 4.97 K/uL (4.8-10.8)
[2019-11-10 07:33] LABS: Partial Thromboplastin Ratio 0.9; Partial Thromboplastin Time 25.4 Seconds (21.0-31.0); Prothrombin Time 10.6 Seconds (9.0-12.0)
[2019-11-10 07:51] LABS: Basophils # (auto) 0.01 K/uL (0-0.2); Basophils % (auto) 0.2 %; Echinocytes 1+; Immature Granulocytes # (auto) 0.01 K/uL (0.00-0.02); Immature Granulocytes % (auto) 0.2 %; Lymphocytes # (auto) 0.72 K/uL (1.2-3.4); Lymphocytes % (auto) 14.5 %; Monocytes # (auto) 0.19 K/uL (0.11-0.59); Monocytes % (auto) 3.8 %; Neutrophils # (auto) 4.04 K/uL (1.4-6.5); Neutrophils % (auto) 81.3 %
[2019-11-10 08:05] LABS: Albumin Level 2.8 gm/dl (3.4-5.0); BUN Creatinine Ratio 10.7 (10-20); Calcium 7.8 mg/dl (8.5-10.1); Creatinine Clr Calc Pharmacy 103.5 ml/min; Est GFR (African American) 111.2; Potassium 3.3 mmol/L (3.5-5.1)
[2019-11-10 08:06] LABS: Albumin Globulin Ratio 0.9 (0.9-2); Bilirubin,Total 0.2 mg/dl (0.2-1); Globulin 3.2 gm/dl (2.5-4.0)
[2019-11-10] MEDS: MONTELUKAST SODIUM 10 MG TABLET PO SCH (09:13)
[2019-11-10] MEDS: VITAMIN B COMPLEX TAB PO SCH (09:14)
--- NOTE | 2019-11-10 12:57 | Gastrointestinal Consultation ---
Date of Consultation November 10, 2019 Assessment & Plan (1) Lymphocytic colitis: severe, newly diagnosed. Recs: 1. would dc solumedrol and resume budesonide 9 mg daily 2. if no improvement with budesonide after 1-2 weeks will have to consider biologic therapy 3. supportive care, replete lytes prn 4. rest as per primary team History of Present Illness Attending Physician: Robin Melton MD 59 yo female with history of microscopic colitis recently diagnosed on colonoscopy with biopsy here with severe diarrhea and electrolyte imbalance. She was just started on budesonide for her disease prior to admission, had taken 1 dose of the medication prior to admission. Was noted to be hypokalemic on admission and dehydrated. Notes 10-15 bms daily, loose, occurring even at night. Otherwise denies any other significant symptoms. Currently on IV solumedrol. Labs as above, no pertinent imaging to review, cdiff negative, colonoscopy as above. Allergies Allergy/AdvReac Type Severity Reaction Status Date / Time dicyclomine Allergy Mild VISUAL Verified 11/09/19 22:10 DISTURBANCES latex AdvReac Mild SKIN Verified 11/09/19 22:10 IRRITATION Home Medications Home Medications Medication Instructions Recorded Confirmed Type sertraline 50 mg tablet 50 mg PO HS 09/04/19 11/09/19 History topiramate 100 mg tablet 100 mg PO BID 09/04/19 11/09/19 History montelukast [Singulair] 10 mg PO QAM 10/30/19 11/09/19 History rizatriptan 10 mg PO UD PRN 10/30/19 11/09/19 History vitamin B complex 1 tab PO QAM 10/30/19 11/09/19 History budesonide 9 mg tablet,delayed and 9 mg PO DAILY #30 ea 11/09/19 11/09/19 Rx extended release Patient History Medical History Anxiety Celiac disease blood work positive, pt denies any EGD---follows GF diet Chronic diarrhea Giardiasis IBS (irritable bowel syndrome) Migraine Spinal stenosis Surgical History H/O colonoscopy History of arthroscopy of left shoulder labial tear History of arthroscopy of right shoulder labial tear History of photorefractive keratectomy (PRK) right eye History of vaginal hysterectomy Family History Mother Family history of diabetes mellitus Other No family history of adverse response to anesthesia Social History Preferred Language: Austrian Communication Ability: Effective Visual Impairment: No Limitations Hearing Ability: Normal Site Engineer Required: No Beliefs That Will Affect Care: None marital status: Current Living Situation: Alone current occupational status: employed current occupation: Registered Nurse Other Information That Helps Us Care for You: No Feels Safe at Home: Yes Safety Concerns: Feels Safe At This Time Smoking Status: Never smoker Do You Dip or Chew Tobacco: No ; Second Hand Exposure: No ; Hx Alcohol Use: No Hx Substance Use: No Childhood Exposure to Second-Hand Smoke: Yes caffeine: No during the past year weight has: remained stable Dental Care, Regularly: Yes Physical Activity Frequency: Daily Seatbelt Use: always Sunscreen Use: Yes Review of Systems Constitutional: no fever, no chills and no weight loss Eyes: as per Subjective / HPI Ear, Nose, Mouth, Throat: as per Subjective / HPI Respiratory: no dyspnea and no dyspnea on exertion Cardiovascular: no chest pain and no palpitations Gastrointestinal: as per Subjective / HPI Musculoskeletal: no joint pain and no swelling Integumentary: no rash and no lesions Neurologic: no numbness and no paresthesia Psychiatric: no depression and no anxiety Endocrine: no fatigue Hematologic / Lymphatic: no easy bleeding and no easy bruising Physical Exam Constitutional: WD/WN, vitals as above Eyes: EOM intact bilaterally Neck: normal visual inspection Respiratory: normal respiratory effort, lungs clear to auscultation Cardiovascular: RRR, no murmur, no edema Gastrointestinal (Abdomen): Inspection/Auscultation: abdomen normal to inspection; abdomen not distended Percussion/Palpation: abdomen soft; abdomen nontender and no hepatosplenomegaly Musculoskeletal: Extremities: no cyanosis Gait: normal gait Skin: no rashes, warm and dry Neurologic: moves all extremities Psychiatric: A+Ox3, euthymic affect Results & Data Vital Signs (Past 12 Hours) Vital Signs Temp Pulse Pulse Resp BP BP Pulse Ox 11/10/19 11:10 37.0 C 75 16 124/75 96 11/10/19 08:00 73 11/10/19 07:17 37.2 C 80 16 131/76 96 11/10/19 04:13 36.6 C 76 18 107/65 97 11/10/19 02:01 77 11/10/19 01:12 36.6 C 76 16 117/75 97 11/10/19 01:10 36.6 C 76 16 117/75 97 Pulse Ox 11/10/19 11:10 11/10/19 08:00 11/10/19 07:17 11/10/19 04:13 11/10/19 02:01 11/10/19 01:12 11/10/19 01:10 97 PG Care Time/CCT Total # of Minutes Spent Total Time Spent with Patient: Total time spent is greater than 50% in coordination of care (as documented) at patient's floor/unit and/or counseling patient:
[2019-11-10] MEDS ORDERED: CALCIUM GLUCONATE 10% 10 ML VIAL IV STA (14:33)
--- NOTE | 2019-11-10 14:36 | Hospitalist Progress Note ---
Date of Service November 10, 2019 Assessment & Plan (1) Lymphocytic colitis: Lymphocytic colitis, as diagnosed on recent colonscopy by Dr. Bonner. - Discussed with GI -> Stop IV steroids and return to oral budesonide. - Replete electrolytes PRN (2) Celiac disease: She reports that the symptoms began after eating cheddar biscuits at [employer]. - Gluten-free diet (3) Migraine: Continue topiramate and sertraline. (4) Anxiety: Continue topiramate and sertraline (5) DVT prophylaxis: SCDs - Low DVT risk per admission calculator Subjective Feels drug out today. Fatigued. No focal complaints. Reports no fevers/chills, chest pain, shortness of breath, abdominal pain, nausea, or vomiting. Physical Exam Constitutional: WD/WN, vitals as above Eyes: EOM intact bilaterally; no conjunctival abnormality ENMT: external ear and nose normal, oropharynx normal Neck: trachea midline, no thyromegaly normal visual inspection Respiratory: normal respiratory effort, lungs clear to auscultation no respiratory distress Cardiovascular: RRR, no murmur, no edema Gastrointestinal (Abdomen): Inspection/Auscultation: abdomen normal to inspection; abdomen not distended Musculoskeletal: no cyanosis or clubbing, extremities motor strength 5/5 Skin: no rashes, warm and dry Neurologic: moves all extremities and awake Psychiatric: Orientation: alert, oriented to person and cooperative Results & Data Vital Signs (Past 12 Hours) Vital Signs Temp Pulse Pulse Resp BP Pulse Ox 11/10/19 11:10 37.0 C 75 16 124/75 96 11/10/19 08:00 73 11/10/19 07:17 37.2 C 80 16 131/76 96 11/10/19 04:13 36.6 C 76 18 107/65 97 PG Care Time/CCT Total # of Minutes Spent Total Time Spent with Patient: Total time spent is greater than 50% in coordination of care (as documented) at patient's floor/unit and/or counseling patient:
[2019-11-10] MEDS ORDERED: POTASSIUM CHLORIDE PWD 20 MEQ PACK PO SCH (15:00)
[2019-11-10] MEDS ORDERED: CALCIUM GLUCONATE 10% 2,000 MG in SODIUM CHLORIDE 0.9% 50 ML IV ONE (15:00)
[2019-11-10] MEDS: BUDESONIDE EC 3 MG CAP PO SCH (15:23)
[2019-11-10] MEDS ORDERED: Nursing to Pharmacy Communication ONE (15:39)
[2019-11-10] MEDS ORDERED: MENTHOL-ZINC OXIDE 360 APPLN/120 GM TUBE EXT PRN (18:30)
[2019-11-10] MEDS ORDERED: SERTRALINE HCL 50 MG TABLET PO SCH (21:00)
[2019-11-11 06:39] LABS: Calcium 8.1 mg/dl (8.5-10.1); Creatinine Clr Calc Pharmacy 104.4 ml/min; Est GFR (African American) 111.8; Est GFR (Non-African American) 96.4; Magnesium 2.1 mg/dl (1.8-2.4); Phosphorus 2.4 mg/dl (2.5-4.9); Potassium 3.2 mmol/L (3.5-5.1)
[2019-11-11] MEDS: POTASSIUM CHLORIDE 20 MEQ TABCR PO SCH (08:13)
[2019-11-11] MEDS: TOPIRAMATE 100 MG TAB PO SCH (08:13)
[2019-11-11] MEDS: MONTELUKAST SODIUM 10 MG TABLET PO SCH (08:13)
[2019-11-11] MEDS: BUDESONIDE EC 3 MG CAP PO SCH (08:14)
[2019-11-11] MEDS: VITAMIN B COMPLEX TAB PO SCH (08:14)
[2019-11-11] MEDS ORDERED: POTASSIUM PHOS 3 MMOL/1 ML INFUSION IV STA (08:27)
[2019-11-11] MEDS ORDERED: POTASSIUM PHOSPHATE 21 MMOL in SODIUM CHLORIDE 0.9% 500 ML IV ONE (08:45)
--- NOTE | 2019-11-11 16:31 | Discharge Summary ---
Date of Service November 11, 2019 Admission HPI Per Admitting Provider The patient is a 59-year-old female with a past medical history including celiac disease, lymphocytic colitis, Chiari malformation, migraine, chronic diarrhea and depression, who reports that around she had eaten 2 biscuits at a local eatery, and shortly thereafter developed persistent diarrhea, unchanged since that time. Laboratories were drawn in the outpatient setting today, and a very low potassium was found, and she was referred to the emergency department for treatment. Patient does have a history of intermittent diarrhea, associated with her celiac disease, however, since the symptoms were significantly worse, she did undergo an EGD recently by Dr. Bonner, after a failed course of treatment of Xifaxan, and was found to have lymphocytic colitis, for which she was recently prescribed and just started budesonide orally. Principal Diagnosis Lymphocytic colitis leading to diarrhea leading to hypokalemia Discharge Exam Constitutional WD/WN, vitals as above Eyes EOM intact bilaterally; no conjunctival abnormality ENMT external ear and nose normal, oropharynx normal Neck trachea midline, no thyromegaly normal visual inspection Respiratory normal respiratory effort, lungs clear to auscultation no respiratory distress Cardiovascular RRR, no murmur, no edema Gastrointestinal (Abdomen) Inspection/Auscultation: abdomen normal to inspection; abdomen not distended Musculoskeletal no cyanosis or clubbing, extremities motor strength 5/5 Skin no rashes, warm and dry Neurologic moves all extremities and awake Psychiatric Orientation: alert, oriented to person and cooperative Discharge Data Allergies Allergy/AdvReac Type Severity Reaction Status Date / Time dicyclomine Allergy Mild VISUAL Verified 11/09/19 22:10 DISTURBANCES latex AdvReac Mild SKIN Verified 11/09/19 22:10 IRRITATION Consultations 11/09/19 22:16 ED Decision to Admit Stat 11/10/19 01:08 Consult Case Management - Discharge Planning Routine Consult Gastroenterology Routine Hospital Course (1) Lymphocytic colitis: Lymphocytic colitis, as diagnosed on recent colonscopy by Dr. Bonner. - Discussed with GI -> Stopped IV steroids and returned to oral budesonide. It may take 1-2 weeks to improve. Unfortunately, the diarrhea was not improving by discharge. - Repleted electrolytes with oral and IV formulations. Discharged on oral supplements. The patient felt she would do just as well at home. She will get her labs checked on Wednesday and contact PCP or GI if they are again low. She did realize she may need to go to the hospital again for IV repletion and was willing to accept this risk. (2) Celiac disease: She reports that the symptoms began after eating cheddar biscuits at [facility]; however, this is - Will follow strict gluten-free diet on discharge. (3) Migraine: Continue topiramate and sertraline. (4) Anxiety: Continue topiramate and sertraline (5) DVT prophylaxis: SCDs - Low DVT risk per admission calculator Total Time Total Time Spent Total Time Spent (In Minutes): 35 Discharge Plan Discharge Items Patient Disposition: Home - Self-Care Reason For Visit: HYPOKALEMIA, DIARRHEA Discharge Diagnosis: Lymphocytic colitis causing diarrhea Activity: Resume your previous activity Non-emergency contact: Primary Care Provider and Online Publisher Call non-emergency contact if: you have any medication questions, your symptoms worsen and your temperature is above 101 Follow-up/Referrals: Eli Ventura MD [Primary Care Provider] - Diet: Low Fiber Ambulatory Orders: Basic Metabolic Panel (Routine) Timeframe: 3 Days Location: Determined by Patient Ordered By: Robin Melton Magnesium (Routine) Timeframe: 3 Days Location: Determined by Patient Ordered By: Robin Melton Phosphorus (Routine) Timeframe: 3 Days Location: Determined by Patient Ordered By: Robin Melton Addtl Attending Provider Instructions: You were hospitalized for low electrolytes caused by your diarrhea from lymphocytic colitis. We are sending you home with potassium and phosphate repletion which will hopefully keep your levels up. You should get your labs checked on Wednesday to be sure your levels are holding steady. Pending Studies at Discharge: No Stand-Alone Forms: [facility], Smoking Cessation Medications and DC Order Prescriptions: New potassium chloride 15 mEq tablet,ER particles/crystals 30 meq PO BID Qty: 60 RF: 0 potassium, sodium phosphates [Phosphorous Supplement] 280-160-250 mg powder in packet 1 pkt PO BID Qty: 100 RF: 0 Continued topiramate [Topamax] 100 mg tablet 100 mg PO BID RF: 0 sertraline [Zoloft] 50 mg tablet 50 mg PO HS RF: 0 budesonide [Uceris] 9 mg tablet,delayed and ext.release 9 mg PO DAILY Qty: 30 RF: 1 vitamin B complex Tablet 1 tab PO QAM RF: 0 montelukast [Singulair] 10 mg Tablet 10 mg PO QAM RF: 0 rizatriptan 10 mg tablet 10 mg PO UD PRN (Reason: migraine headache) RF: 0 Discharge Orders: Discharge Order (Routine); Ordered 11/11/19 Ordered By: Robin Melton Admission Data Admit Date/Time: 11/09/19 23:37 Attending Provider: Robin Melton Admit Provider: Satya Crawford Primary Care Provider: Eli Ventura Other Providers: Ajith Bonner ; Robin Melton Other Interventions: Discharge Summary Assessment (RN) Last Done: 11/11/19 12:50 DC Date/Time DO NOT enter until pt leaves facility: 11/11/19 13:12
--- NOTE | 2019-11-15 15:02 | Communication Note ---
Date of Service: November 15, 2019 Spoke with Ms. Parkinson today. Got Strep throat, but is on abx from her PCP. Labs are stable. Fortunately diarrhea is improving, and she is transitioning to daily potassium and phosphate supplements. Will see her PCP on Wednesday.
== END 2019-11-11 13:12 | disposition home or self-care (01) | DRG 392 ==
LOC: ED 20:29 → SUATTDRO 23:37 → 2N 23:37